=== PATIENT | male | born 1965 | race Caucasian/White ===

== ENCOUNTER 2017-10-12 12:56 | Inpatient (IN) | payer OTHER ==
[~2017-10-12] VITALS: Ht 188 cm; Wt 82.5 kg
[2017-10-12 13:19] LABS: HEMATOCRIT 39.8 % (38.0-50.0); HEMOGLOBIN 13.3 G/DL (12.5-16.6); MCH 25.8 PG (29.0-34.0); MCHC 33.4 G/DL (30.0-36.0); MCV 77.3 FL (86-99); PLATELET COUNT 154 K/uL (156-360); RBC DIS.WIDTH-CV 14.3 % (11.8-14.6); RBC DIS.WIDTH-SD 39.9 % (39-53); RED BLOOD COUNT 5.15 M/uL (4.00-5.50); WHITE BLOOD COUNT 9.5 K/uL (4.1-10.2)
[2017-10-12 13:27] LABS: CHLORIDE 96 mEq/L (99-109); POTASSIUM 4.1 mEq/L (3.7-5.4)
[2017-10-12 13:28] LABS: SODIUM 135 mEq/L (136-147)
[2017-10-12 13:29] LABS: GLUCOSE 242 mg/dL (70-99)
[2017-10-12 13:33] LABS: CREATININE 1.2 mg/dL (0.6-1.3); GFR ESTIMATE (CALCULATED) > 59 mL/min/ (58.99-99999)
[2017-10-12 13:34] LABS: UREA NITROGEN (BUN) 15 mg/dL (9-23)
[2017-10-12 14:07] LABS: APPEARANCE TURBID ((CLEAR)); BILIRUBIN NEGATIVE; BLOOD SMALL; COLOR YELLOW ((YELLOW)); GLUCOSE (STRIP) 50; KETONES NEGATIVE; LEUKOCYTES LARGE; NITRITE NEGATIVE; PROTEIN (STRIP) 100; SPECIFIC GRAVITY 1.012 (1.000-1.030)
[2017-10-12 14:25] LABS: UCUL ADDED? YES; WHITE BLOOD CELLS TNTC /HPF (0-5)
[2017-10-12 17:24] LABS: ALBUMIN 3.6 g/dL (3.2-4.8)
[2017-10-12 17:27] LABS: TOTAL PROTEIN 7.1 g/dL (6.4-8.3)
[2017-10-12 17:29] LABS: TOTAL BILIRUBIN 1.1 mg/dL (0.0-1.0)
[2017-10-12 17:30] LABS: ALKALINE PHOSPHATASE 113 IU/L (3-129)
[2017-10-12 17:32] LABS: AST (GOT) 21 IU/L (2-34); DIRECT BILIRUBIN 0.6 mg/dL (0.0-0.3)
[2017-10-12 17:33] LABS: ALT (GPT) 23 IU/L (3-49)
[2017-10-12] MEDS ORDERED: TIMOPTIC RIGHT EYE (18:00)
[2017-10-12 21:19] VITALS: BP 125/68
[2017-10-12 23:18] VITALS: BP 131/62
[2017-10-13 07:21] LABS: HEMATOCRIT 33.9 % (38.0-50.0); MCH 25.4 PG (29.0-34.0); MCV 76.9 FL (86-99); PLATELET COUNT 126 K/uL (156-360); RBC DIS.WIDTH-CV 14.3 % (11.8-14.6); RBC DIS.WIDTH-SD 40.2 % (39-53); RED BLOOD COUNT 4.41 M/uL (4.00-5.50); WHITE BLOOD COUNT 7.3 K/uL (4.1-10.2)
[2017-10-13 07:29] LABS: HEMOGLOBIN 11.2 G/DL (12.5-16.6)
[2017-10-13 07:30] LABS: CHLORIDE 100 MEQ/L (99-109); GFR ESTIMATE (CALCULATED) > 59 mL/min/ (58.99-99999); GLUCOSE 171 mg/dL (70-99); POTASSIUM 3.8 MEQ/L (3.7-5.4); SODIUM 140 MEQ/L (136-147); UREA NITROGEN (BUN) 15 mg/dL (9-23)
[2017-10-13 08:21] VITALS: BP 127/68
[2017-10-13 11:41] LABS: HEPATITIS B SURFACE ANTIBODY Nonreactive; HEPATITIS B SURFACE ANTIGEN Nonreactive; HEPATITIS C ANTIBODY Nonreactive
[2017-10-13 16:17] VITALS: BP 133/70
[2017-10-13 23:07] VITALS: BP 123/64
[2017-10-14 06:41] LABS: BASOPHIL (%) 0.3 % (0-1); EOSINOPHIL (%) 1.4 % (0-5); EOSINOPHIL COUNT 0.1 K/uL (0-0.3); HEMATOCRIT 35.5 % (38.0-50.0); HEMOGLOBIN 11.6 G/DL (12.5-16.6); IMMATURE GRANULOCYTE (%) 0.5 % (0.0-0.7); LYMPHOCYTE (%) 23.1 % (15-42); LYMPHOCYTE COUNT 1.5 K/uL (1.0-2.8); MCH 25.3 PG (29.0-34.0); MCHC 32.7 G/DL (30.0-36.0); MCV 77.5 FL (86-99); MONOCYTE (%) 6.2 % (3-12); MONOCYTE COUNT 0.4 K/uL (0-0.8); NEUTROPHIL (%) 68.5 % (45-76); NEUTROPHIL COUNT 4.6 K/uL (1.8-6.4); PLATELET COUNT 139 K/uL (156-360); RBC DIS.WIDTH-CV 14.6 % (11.8-14.6); RBC DIS.WIDTH-SD 40.8 % (39-53); RED BLOOD COUNT 4.58 M/uL (4.00-5.50); WHITE BLOOD COUNT 6.7 K/uL (4.1-10.2)
[2017-10-14 07:05] LABS: CHLORIDE 99 MEQ/L (99-109); GFR ESTIMATE (CALCULATED) > 59 mL/min/ (58.99-99999); GLUCOSE 191 mg/dL (70-99); POTASSIUM 3.2 MEQ/L (3.7-5.4); SODIUM 139 MEQ/L (136-147); UREA NITROGEN (BUN) 15 mg/dL (9-23)
[2017-10-14 07:25] VITALS: BP 116/68
[2017-10-14 10:03] LABS: HEMOGLOBIN A1c (GLYCOHEMOGLOB) 10.2 % (Below 5.7)
[2017-10-14 16:47] VITALS: BP 127/68
[2017-10-15 00:28] VITALS: BP 136/77
[2017-10-15 05:55] LABS: BASOPHIL (%) 0.3 % (0-1); EOSINOPHIL (%) 2.4 % (0-5); EOSINOPHIL COUNT 0.2 K/uL (0-0.3); HEMATOCRIT 34.8 % (38.0-50.0); HEMOGLOBIN 11.4 G/DL (12.5-16.6); IMMATURE GRANULOCYTE (%) 0.5 % (0.0-0.7); LYMPHOCYTE (%) 18.1 % (15-42); LYMPHOCYTE COUNT 1.3 K/uL (1.0-2.8); MCH 25.2 PG (29.0-34.0); MCHC 32.8 G/DL (30.0-36.0); MONOCYTE (%) 5.4 % (3-12); MONOCYTE COUNT 0.4 K/uL (0-0.8); NEUTROPHIL (%) 73.3 % (45-76); NEUTROPHIL COUNT 5.4 K/uL (1.8-6.4); PLATELET COUNT 139 K/uL (156-360); RBC DIS.WIDTH-CV 14.4 % (11.8-14.6); RBC DIS.WIDTH-SD 40.2 % (39-53); RED BLOOD COUNT 4.52 M/uL (4.00-5.50); WHITE BLOOD COUNT 7.4 K/uL (4.1-10.2)
[2017-10-15 06:35] LABS: CHLORIDE 101 MEQ/L (99-109); GFR ESTIMATE (CALCULATED) > 59 mL/min/ (58.99-99999); GLUCOSE 196 mg/dL (70-99); SODIUM 138 MEQ/L (136-147); UREA NITROGEN (BUN) 14 mg/dL (9-23)
[2017-10-15 07:21] VITALS: BP 132/71
[2017-10-15 15:22] VITALS: BP 130/62
[2017-10-16] VITALS: BP 132/69
[2017-10-16 05:41] LABS: BASOPHIL (%) 0.3 % (0-1); EOSINOPHIL (%) 2.7 % (0-5); EOSINOPHIL COUNT 0.2 K/uL (0-0.3); HEMATOCRIT 35.2 % (38.0-50.0); HEMOGLOBIN 11.8 G/DL (12.5-16.6); IMMATURE GRANULOCYTE (%) 0.9 % (0.0-0.7); LYMPHOCYTE (%) 13.6 % (15-42); MCH 25.7 PG (29.0-34.0); MCHC 33.5 G/DL (30.0-36.0); MCV 76.7 FL (86-99); MONOCYTE (%) 5.8 % (3-12); MONOCYTE COUNT 0.4 K/uL (0-0.8); NEUTROPHIL (%) 76.7 % (45-76); NEUTROPHIL COUNT 5.7 K/uL (1.8-6.4); PLATELET COUNT 141 K/uL (156-360); RBC DIS.WIDTH-CV 14.4 % (11.8-14.6); RBC DIS.WIDTH-SD 39.2 % (39-53); RED BLOOD COUNT 4.59 M/uL (4.00-5.50); WHITE BLOOD COUNT 7.4 K/uL (4.1-10.2)
[2017-10-16 06:28] LABS: CHLORIDE 98 MEQ/L (99-109); CREATININE 0.9 MG/DL (0.6-1.3); GFR ESTIMATE (CALCULATED) > 59 mL/min/ (58.99-99999); GLUCOSE 164 mg/dL (70-99); POTASSIUM 4.9 MEQ/L (3.7-5.4); SODIUM 137 MEQ/L (136-147); UREA NITROGEN (BUN) 13 mg/dL (9-23)
[2017-10-16 07:12] VITALS: BP 125/76
[2017-10-16 16:17] VITALS: BP 106/67
[2017-10-16 23:39] VITALS: BP 117/63
[2017-10-17 05:59] LABS: BASOPHIL (%) 0.4 % (0-1); EOSINOPHIL (%) 2.2 % (0-5); EOSINOPHIL COUNT 0.2 K/uL (0-0.3); HEMOGLOBIN 11.5 G/DL (12.5-16.6); IMMATURE GRANULOCYTE (%) 0.9 % (0.0-0.7); LYMPHOCYTE (%) 18.6 % (15-42); LYMPHOCYTE COUNT 1.4 K/uL (1.0-2.8); MCH 25.2 PG (29.0-34.0); MCHC 32.9 G/DL (30.0-36.0); MCV 76.8 FL (86-99); MONOCYTE (%) 7.3 % (3-12); MONOCYTE COUNT 0.6 K/uL (0-0.8); NEUTROPHIL (%) 70.6 % (45-76); NEUTROPHIL COUNT 5.4 K/uL (1.8-6.4); PLATELET COUNT 148 K/uL (156-360); RBC DIS.WIDTH-CV 14.5 % (11.8-14.6); RBC DIS.WIDTH-SD 40.2 % (39-53); RED BLOOD COUNT 4.56 M/uL (4.00-5.50); WHITE BLOOD COUNT 7.6 K/uL (4.1-10.2)
[2017-10-17 06:20] LABS: CHLORIDE 100 MEQ/L (99-109); GFR ESTIMATE (CALCULATED) > 59 mL/min/ (58.99-99999); GLUCOSE 157 mg/dL (70-99); POTASSIUM 4.5 MEQ/L (3.7-5.4); SODIUM 136 MEQ/L (136-147); UREA NITROGEN (BUN) 14 mg/dL (9-23)
[2017-10-17 08:20] VITALS: BP 116/68
[2017-10-17] MEDS ORDERED: TAMSULOSIN HCL0.4 MG PO (15:09)
[2017-10-17] MEDS ORDERED: ANCEF,KEFZOL1 GM IV (15:10)
[2017-10-17] MEDS ORDERED: LEVEMIR100 UNIT/2 SC (15:11)
[2017-10-17] MEDS ORDERED: NATURAL BALANCE15 M1 BOTH EYES (15:11)
[2017-10-17] MEDS ORDERED: GLUCOPHAGE500 MG PO (15:12)
== END 2017-10-17 17:10 | disposition home health service (06) | DRG 872 ==
LOC: EME 12:56 → EDOF 19:25 → 5EAST 19:25 → ENRESERV 19:34 → 5EAST 20:41
PROVIDERS: Hospitalist; Internal Medicine
PROC: 0T9B70Z Drainage of Bladder with Drainage Device, Via Natural or Artificial Opening (ICD-10-PCS; principal; 2017-10-12)
DX: A41.01 Sepsis due to Methicillin susceptible Staphylococcus aureus (principal); N13.6 Pyonephrosis; N41.0 Acute prostatitis; N35.9 Urethral stricture, unspecified; E11.65 Type 2 diabetes mellitus with hyperglycemia; K74.60 Unspecified cirrhosis of liver; R16.1 Splenomegaly, not elsewhere classified; R18.8 Other ascites; E87.6 Hypokalemia; M54.5 Low back pain; K64.9 Unspecified hemorrhoids; D64.9 Anemia, unspecified; Z87.440 Personal history of urinary (tract) infections
CPT/HCPCS: 74176; 74177; 76705; 76937; 80048; 80076; 81003; 82565; 82948; 83036; 83605; 85025; 85027; 86706; 86803; 87040; 87077; 87086; 87147; 87186; 87340; 87801; 99281; 99285; C1751; C1894; J0690; J1644; J1815; J2543; J3370; J3480; J7030; J7050